=== PATIENT | female | born 1995 | race American Indian/Alaskan Native ===

== ENCOUNTER 2020-06-26 12:49 | Emergency (ER) | payer OTHER, MEDICAID ==
[2020-06-26] MEDS ORDERED: SODIUM CHLORIDE 0.9% 1000 ML 1,000 ML IV ONE (13:17)
--- NOTE | 2020-06-26 13:39 | Event Note ---
ED Screening Note Date of service: 06/26/20 Time: 13:38 ED Screening Note: 25-year-old -[place] female who reports she is approximately 13 weeks [facility] complaining of vaginal discharge that is white. She also complains of left lower quadrant pain when she turns or sleeps on the left side. Patient was seen prior to here at labor and delivery and was cleared to be evaluated here. Patient reports that she is cramping all over as she is withdrawing from Percocets. Patient reports that she usually takes approximately 3 Percocets a day. Patient has not had Percocets and over 24 hours. Patient reports she is not eating because of the food in the community health is nasty. She does admit to nausea and some vomiting. Reports she has not had a bowel movement in over a week. This initial assessment/diagnostic orders/clinical plan/treatment(s) is/are subject to change based on patients health status, clinical progression and re- assessment by fellow clinical providers in the ED. Further treatment and workup at subsequent clinical providers discretion. Patient/guardian urged not to elope from the ED as their condition may be serious if not clinically assessed and managed. Initial orders include:
[2020-06-26 14:01] LABS: Basophils % (Auto) 0.1 % (0.0-1.8); Eosinophils # (Auto) 0.1 K/mm3 (0.0-0.4); Eosinophils % (Auto) 1.1 % (0.0-4.3); Hematocrit 37.7 % (30.3-42.9); Hemoglobin 12.9 gm/dl (10.1-14.3); Lymphocytes # (Auto) 1.8 K/mm3 (1.2-5.4); Lymphocytes % (Auto) 21.1 % (13.4-35.0); Mean Corpuscular HGB Conc 34 % (30-34); Mean Corpuscular Volume 87 fl (79-97); Monocytes # (Auto) 0.6 K/mm3 (0.0-0.8); Monocytes % (Auto) 6.8 % (0.0-7.3); Platelet Count 168 K/mm3 (140-440); Red Blood Count 4.34 M/mm3 (3.65-5.03); Red Cell Distribution Width 14.9 % (13.2-15.2)
[2020-06-26 14:02] LABS: Alanine Aminotransferase 194 units/L (7-56); Albumin 4.2 g/dL (3.9-5); Blood Urea Nitrogen 8 mg/dL (7-17); Calcium 9.6 mg/dL (8.4-10.2); Hemolysis Index 12
[2020-06-26 14:08] LABS: BUN/Creatinine Ratio 11
[2020-06-26 14:08] LABS: Bacteria,Urine 1+ /HPF (Negative); Bilirubin,Urine NEG (Negative); Blood,Urine NEG (Negative); Color,Urine Yellow (Yellow); Mucus,Urine FEW /HPF; Protein,Urine <15 mg/dL mg/dL (Negative)
[2020-06-26] MEDS ORDERED: ONDANSETRON 4 MG/2 ML INJ IV ONE (14:19)
[2020-06-26] MEDS ORDERED: diphenhydrAMINE 50 MG/ML VIAL IV ONE (14:24)
--- NOTE | 2020-06-26 14:33 | Emergency Department Report ---
ED General Adult HPI - General Chief complaint: Urogenital-Female Stated complaint: 13WKS PREG; VAGINAL DISCHARGE Time Seen by Provider: 06/26/20 13:16 Source: patient, EMS Mode of arrival: Ambulatory Limitations: No Limitations - History of Present Illness Initial comments: 25-year female the past medical history of hypertension, bipolar disorder, and Percocet abuse presents to the hospital from care home complaining of feeling that her neck is locking up. Patient thinks her symptoms are secondary to Percocet withdrawal. She states she typically abuses Percocet 10 mg 4 tablets/day. She has not had any Percocets for the last 2 days since being incarcerated. She also has not had her Seroquel for the past 2 days. She denies auditory visual hallucinations she was sent from the care home due to who some clear vaginal discharge and some mild abdominal pain. Patient went to labor and delivery since she reported being 22 weeks . I spoke to charge nurse Vandana who states that the triage nurse in labor and delivery performed a bedside ultrasound and patient was approximately 13 weeks . Patient provides a due date of January 02 with which make her gestational age 12 weeks and 6 days. She denies nausea, vomiting, or diarrhea Severity scale (0 -10): 0 - Related Data Previous Rx's Medication Instructions Recorded Last Taken Type Ondansetron [Zofran Odt] 4 mg PO Q8HR PRN #20 tab.rapdis 06/26/20 Unknown Rx diphenhydrAMINE [Benadryl CAP] 50 mg PO Q6HR PRN #20 capsule 06/26/20 Unknown Rx Allergies Allergy/AdvReac Type Severity Reaction Status Date / Time tramadol Allergy Unknown Verified 06/26/20 13:42 ED Review of Systems ROS: Stated complaint: 13WKS PREG; VAGINAL DISCHARGE Other details as noted in HPI Comment: All other systems reviewed and negative ED Past Medical Hx - Past Medical History Previous Medical History?: Yes Hx Hypertension: Yes Additional medical history: Vaginal delivery x 2 - Surgical History Past Surgical History?: No - Social History Smoking Status: Current Every Day Smoker - Medications Home Medications: Home Medications Medication Instructions Recorded Confirmed Last Taken Type Ondansetron [Zofran Odt] 4 mg PO Q8HR PRN #20 tab.rapdis 06/26/20 Unknown Rx diphenhydrAMINE [Benadryl CAP] 50 mg PO Q6HR PRN #20 capsule 06/26/20 Unknown Rx ED Physical Exam - General Limitations: No Limitations - Other Other exam information: General: No acute distress Head: Atraumatic Eyes: normal appearance ENT: Moist mucous membranes Neck: Normal appearance, no midline tenderness Chest: Clear to auscultation bilaterally CV: Tachycardic regular rhythm Abdomen: Soft, normal bowel sounds, nontender, nondistended, no rebound or guarding Back: Normal inspection Extremity: Normal inspection, full range of motion Neuro: Alert O x 3, no facial asymmetry, speech clear, no gross motor sensory deficit Psych: Agitated, restless Skin: No rash ED Course Vital Signs 06/26/20 06/26/20 06/26/20 13:07 13:40 15:45 Temperature 98.7 F Pulse Rate 116 H 86 Respiratory 20 20 18 Rate Blood Pressure 124/77 Blood Pressure 117/70 [Right] O2 Sat by Pulse 96 96 99 Oximetry ED Medical Decision Making - Lab Data Result diagrams: 06/26/20 13:27 06/26/20 13:27 Lab Results 06/26/20 06/26/20 06/26/20 Range/Units 13:27 13:27 13:27 WBC 8.7 (4.5-11.0) K/mm3 RBC 4.34 (3.65-5.03) M/mm3 Hgb 12.9 (10.1-14.3) gm/dl Hct 37.7 (30.3-42.9) % MCV 87 (79-97) fl MCH 30 (28-32) pg MCHC 34 (30-34) % RDW 14.9 (13.2-15.2) % Plt Count 168 (140-440) K/mm3 Lymph % (Auto) 21.1 (13.4-35.0) % Cross % (Auto) 6.8 (0.0-7.3) % Eos % (Auto) 1.1 (0.0-4.3) % Baso % (Auto) 0.1 (0.0-1.8) % Lymph # (Auto) 1.8 (1.2-5.4) K/mm3 Cross # (Auto) 0.6 (0.0-0.8) K/mm3 Eos # (Auto) 0.1 (0.0-0.4) K/mm3 Baso # (Auto) 0.0 (0.0-0.1) K/mm3 Seg Neutrophils % 70.9 H (40.0-70.0) % Seg Neutrophils # 6.2 (1.8-7.7) K/mm3 Sodium 133 L (137-145) mmol/L Potassium 4.4 (3.6-5.0) mmol/L Chloride 101.7 (98-107) mmol/L Carbon Dioxide 21 L (22-30) mmol/L Anion Gap 15 mmol/L BUN 8 (7-17) mg/dL Creatinine 0.7 (0.6-1.2) mg/dL Estimated GFR > 60 ml/min BUN/Creatinine Ratio 11 % Glucose 107 H (65-100) mg/dL Calcium 9.6 (8.4-10.2) mg/dL Total Bilirubin 0.30 (0.1-1.2) mg/dL AST 79 H (5-40) units/L ALT 194 H (7-56) units/L Alkaline Phosphatase 57 (35-129) units/L Total Protein 7.3 (6.3-8.2) g/dL Albumin 4.2 (3.9-5) g/dL Albumin/Globulin Ratio 1.4 % Lipase (13-60) units/L HCG, Quant 96331 H (0-4) mIU/mL Urine Color (Yellow) Urine Turbidity (Clear) Urine pH (5.0-7.0) Ur Specific [place] (1.003-1.030) Urine Protein (Negative) mg/dL Urine Glucose (UA) (Negative) mg/dL Urine Ketones (Negative) mg/dL Urine Blood (Negative) Urine Nitrite (Negative) Urine Bilirubin (Negative) Urine Urobilinogen (<2.0) mg/dL Ur Leukocyte Esterase (Negative) Urine WBC (Auto) (0.0-6.0) /HPF Urine RBC (Auto) (0.0-6.0) /HPF U Epithel Cells (Auto) (0-13.0) /HPF Urine Bacteria (Auto) (Negative) /HPF Urine Mucus /HPF Urine Opiates Screen Urine Methadone Screen Ur Barbiturates Screen Ur Phencyclidine Scrn Ur Amphetamines Screen U Benzodiazepines Scrn Urine Cocaine Screen U Marijuana (THC) Screen Drugs of Abuse Note 06/26/20 06/26/2006/26/21 Range/Units 13:27 13:41 13:41 WBC (4.5-11.0) K/mm3 RBC (3.65-5.03) M/mm3 Hgb (10.1-14.3) gm/dl Hct (30.3-42.9) % MCV (79-97) fl MCH (28-32) pg MCHC (30-34) % RDW (13.2-15.2) % Plt Count (140-440) K/mm3 Lymph % (Auto) (13.4-35.0) % Cross % (Auto) (0.0-7.3) % Eos % (Auto) (0.0-4.3) % Baso % (Auto) (0.0-1.8) % Lymph # (Auto) (1.2-5.4) K/mm3 Cross # (Auto) (0.0-0.8) K/mm3 Eos # (Auto) (0.0-0.4) K/mm3 Baso # (Auto) (0.0-0.1) K/mm3 Seg Neutrophils % (40.0-70.0) % Seg Neutrophils # (1.8-7.7) K/mm3 Sodium (137-145) mmol/L Potassium (3.6-5.0) mmol/L Chloride (98-107) mmol/L Carbon Dioxide (22-30) mmol/L Anion Gap mmol/L BUN (7-17) mg/dL Creatinine (0.6-1.2) mg/dL Estimated GFR ml/min BUN/Creatinine Ratio % Glucose (65-100) mg/dL Calcium (8.4-10.2) mg/dL Total Bilirubin (0.1-1.2) mg/dL AST (5-40) units/L ALT (7-56) units/L Alkaline Phosphatase (35-129) units/L Total Protein (6.3-8.2) g/dL Albumin (3.9-5) g/dL Albumin/Globulin Ratio % Lipase 21 (13-60) units/L HCG, Quant (0-4) mIU/mL Urine Color Yellow (Yellow) Urine Turbidity Slightly-cloudy (Clear) Urine pH 7.0 (5.0-7.0) Ur Specific [place] 1.017 (1.003-1.030) Urine Protein <15 mg/dl (Negative) mg/dL Urine Glucose (UA) Neg (Negative) mg/dL Urine Ketones Neg (Negative) mg/dL Urine Blood Neg (Negative) Urine Nitrite Neg (Negative) Urine Bilirubin Neg (Negative) Urine Urobilinogen 2.0 (<2.0) mg/dL Ur Leukocyte Esterase Sm (Negative) Urine WBC (Auto) 2.0 (0.0-6.0) /HPF Urine RBC (Auto) 1.0 (0.0-6.0) /HPF U Epithel Cells (Auto) 16.0 H (0-13.0) /HPF Urine Bacteria (Auto) 1+ (Negative) /HPF Urine Mucus Few /HPF Urine Opiates Screen Negative Urine Methadone Screen Negative Ur Barbiturates Screen Negative Ur Phencyclidine Scrn Negative Ur Amphetamines Screen Negative U Benzodiazepines Scrn Negative Urine Cocaine Screen Negative U Marijuana (THC) Screen Negative Drugs of Abuse Note Disclamer - Radiology Data Radiology results: report reviewed US OB <= 14 weeks fetus INDICATION / CLINICAL INFORMATION: mild abd pain, vag d/c, +. COMPARISON: None available. FINDINGS: A single live fetus is seen in the uterus with heart rate 152. [place]-rump length is 6.4 cm, BPD is 2.0 cm and femur length is 0.9 cm. The ovaries are normal in size and appearance. IMPRESSION: Single live fetus of approximately 12 weeks 6 days gestational age in the uterus. heart rate is 152 - Medical Decision Making 25-year female presents to the hospital complaining of muscle spasms of neck spasms secondary to Percocet withdrawal. Patient also has been without her Seroquel for the past 2 days. Patient complained of some vaginal fluid in care home was concerned of possible leakage of amniotic fluid since they were on the impression patient was at least 22 weeks . Ultrasound confirms that patient is 12 weeks and 6 days as indicated by her reported estimated date of delivery. Mild hyponatremia noted and patient received 1 L normal saline. No signs of infection. Muscle spasms and tachycardia improved after receiving Benadryl 50 mg. Patient is medically cleared and will be discharged back to care home. Patient prescribed Benadryl as needed for muscle spasms and agitation. Zofran will be provided in case patient develops nausea and vomiting secondary to opiate withdrawal Critical Care Time: No Critical care attestation.: If time is entered above; I have spent that time in minutes in the direct care of this critically ill patient, excluding procedure time. ED Disposition Clinical Impression: Narcotic abuse, Narcotic withdrawal, Muscle spasm, 12 weeks gestation of Disposition: TO HOME OR SELFCARE Is pt being admited?: No Condition: Stable Instructions: Muscle Cramps and Spasms, [id number], Substance Use Disorder and Mental Illness, Opioid Withdrawal Treatment, First Trimester of Additional Instructions: You are 12 week 6 days gestation of as per ultrasound today. Take the medication as prescribed. Follow-up with your doctor or doctor/clinic provided. Return if symptoms worsen as indicated by your discharge instructions. Prescriptions: diphenhydrAMINE [Benadryl CAP] 50 mg PO Q6HR PRN #20 capsule PRN Reason: Muscle Spasm Ondansetron [Zofran Odt] 4 mg PO Q8HR PRN #20 tab.rapdis PRN Reason: Nausea And Vomiting Referrals: KARLA ROSENTHAL MD [Staff Physician] - 3-5 Days (INTERNAL SALESPERSON doctor ) [facility] - [facility]-5 [facility] ([facility] ) Time of Disposition: 17:28
[2020-06-26 14:41] LABS: Amphetamine Screen,Urine Negative; Benzodiazepines Screen,Urine Negative; Cannabinoid Screen,Urine Negative; Cocaine Screen,Urine Negative; Methadone Screen,Urine Negative; Opiate Screen,Urine Negative
[2020-06-26 15:46] VITALS: BP 117/70
--- NOTE | 2020-06-26 16:33 | Ultrasound Report ---
US OB <= 14 weeks fetus INDICATION / CLINICAL INFORMATION: mild abd pain, vag d/c, +. COMPARISON: None available. FINDINGS: A single live fetus is seen in the uterus with heart rate 152. [place]-rump length is 6.4 cm, BPD is 2.0 cm and femur length is 0.9 cm. The ovaries are normal in size and appearance. IMPRESSION: Single live fetus of approximately 12 weeks 6 days gestational age in the uterus. heart rate is 152 Signer Name: Michele Gipson MD FACR Signed: 06/26/2020 4:29 PM Workstation Name: [id number]
== END 2020-06-26 17:48 | disposition home or self-care (01) ==
LOC: EEVIPCON 12:49 → ED 12:49
DX: O26.891 Other specified pregnancy related conditions, first trimester (principal); O99.331 Smoking (tobacco) complicating pregnancy, first trimester; O16.1 Unspecified maternal hypertension, first trimester; F11.23 Opioid dependence with withdrawal; M62.838 Other muscle spasm; Z79.899 Other long term (current) drug therapy; Z88.8 Allergy status to other drugs, medicaments and biological substances; Z3A.13 13 weeks gestation of pregnancy
CPT/HCPCS: 36415; 76801; 80053; 80307; 81001; 83690; 84702; 85025; 96361; 96374; 96375; 99284; J1200; J2405; J7030